=== PATIENT | female | born 1960 | race Caucasian/White ===

== ENCOUNTER → 2016-06-21 | Outpatient (CLI) | payer OTHER | LOC: US 09:04 | DX: R10.11 Right upper quadrant pain (principal); K76.0 Fatty (change of) liver, not elsewhere classified | CPT/HCPCS: 76705 ==

== ENCOUNTER 2020-04-21 16:55 | Emergency (ER) | payer MEDICARE ==
[~2020-04-21 16:55] MED LIST: BENTYL 10MG CAP10 MG PO; CARDURA 2MG TAB2 MG PO; FLEXERIL 10 MG10 MG PO; FLONASE 0.05% N16 GM; GABAPENTIN600 MG PO; HYDROCHLOROTH12.5 M1 PO; IMDUR ER TAB 3030 MG PO; IMDUR ER TAB 6060 MG PO; LOPRESSOR 50 MG50 MG PO; NITROGLYCERIN0.4 MG SL; NORVASC 5 MG TAB5 MG PO; PAROXETINE HCL20 MG PO; QUETIAPINE FUM100 MG PO; Voltaren Gel 1 % TOP
== END 2020-04-21 20:10 | disposition left against medical advice (07) ==
LOC: ER1 16:55
DX: Z53.21 Procedure and treatment not carried out due to patient leaving prior to being seen by health care provider (principal)
CPT/HCPCS: 93005

== ENCOUNTER → 2020-04-28 | Outpatient (CLI) | payer MEDICARE | LOC: EMI 14:30 | DX: M51.36 Other intervertebral disc degeneration, lumbar region (principal) | CPT/HCPCS: 72148 ==

== ENCOUNTER → 2020-05-11 | Outpatient (CLI) | payer MEDICARE | LOC: KOH-I 13:30 | DX: J32.9 Chronic sinusitis, unspecified (principal); J34.2 Deviated nasal septum; J34.89 Other specified disorders of nose and nasal sinuses | CPT/HCPCS: 70486 ==

== ENCOUNTER → 2020-07-28 | Outpatient (CLI) | payer MEDICARE | LOC: LAB 12:53 | DX: I25.10 Atherosclerotic heart disease of native coronary artery without angina pectoris (principal) | CPT/HCPCS: 36415; 80061; 80076 ==

== ENCOUNTER → 2021-11-13 | Outpatient (CLI) | payer MEDICARE | LOC: US 16:00 | DX: M79.605 Pain in left leg (principal); M71.22 Synovial cyst of popliteal space [Baker], left knee | CPT/HCPCS: 93971 ==